=== PATIENT | female | born 1955 | race Caucasian/White ===

== ENCOUNTER 2025-03-31 21:06 | Emergency (ER) | payer MEDICARE ==
[2025-03-31 22:42] LABS: APPEARANCE,URINE SLIGHTLY CLOUDY (CLEAR); GLUCOSE,URINE NEGATIVE (NEGATIVE); OCCULT BLOOD,URINE NEGATIVE (NEGATIVE)
[2025-03-31 23:20] LABS: SQUAMOUS EPITHELIAL CELLS,UR RARE /HPF; UROTHELIAL CELLS,URINE NOT SEEN /HPF
[2025-04-01] MEDS: Nitrofurantoin Monohydrate/Macrocrystalline 100 MG Cap PO ONE (00:25)
== END 2025-04-01 00:35 | disposition home or self-care (01) ==
LOC: JP.ED 21:06
DX: N30.00 Acute cystitis without hematuria (principal); Z79.899 Other long term (current) drug therapy
CPT/HCPCS: 81001; 87086; 87088; 87186; 99283; A9270